=== PATIENT | male | born 1975 | race African-American/Black ===

== ENCOUNTER 2018-10-04 14:37 | Emergency (ER) | payer SELFPAY ==
--- NOTE | 2018-10-04 14:49 | PDOC ---
History of Present Illness - General Chief Complaint: Pain Stated Complaint: ABD PAIN Time Seen by Provider: 10/04/18 14:48 - History of Present Illness Initial Comments: 10/04/18 16:03 Chief complaint: Right flank and lower abdominal pain History of present illness: Patient experienced severe right flank and right lower quadrant pain this afternoon lasting about 2 hours, which subsequently resolved. There was accompanying nausea and retching. No diarrhea. No hematemesis melena or bloody stool Review of systems: Denies dysuria frequency urgency hesitancy or hematuria, though his urine is dark. Denies chest pain, shortness of breath, visual or focal neurologic symptoms, unsteadiness of gait. Past medical history: Healthy male, no significant medical or surgical problems past her present, no medications Social/family history reviewed and noncontributory Physical exam: Patient is now alert oriented all develop well-nourished in no acute distress cheerful and cooperative. There is no pain nausea vomiting or retching at present Afebrile, vital signs normal No pallor or icterus. PERRLA, ENT clear Neck supple without bruit mass or nodes Chest clear, full breath sounds bilaterally, no wheezes rales or rhonchi CV S1 and S2 normal without murmur rub or gallop pulses full and symmetric no JVD or edema no bruits Abdomen nondistended. Bowel sounds normal. Soft without mass tenderness organomegaly. No CVAT Extremities no CCE Skin clear, no rash, adequate turgor and wet mucous membranes Neurological intact Impression: With a history of dark urine and the characteristics of the pain, with subsequent resolution, in the absence of other GI symptoms, most likely diagnosis is renal colic with passing of the stone Plan: Urinalysis, observation, medical treatment as indicated. Past History - Past Medical History Allergies/Adverse Reactions: Allergies Allergy/AdvReac Type Severity Reaction Status Date / Time No Known Allergies Allergy Verified 10/04/18 15:47 Home Medications: Ambulatory Orders NK [No Known Home Medication] 10/04/18 Medical Decision Making - Medical Decision Making 10/04/18 16:33 Urinalysis shows 3+ blood. These results along with the characteristic symptomatology almost certainly represents renal colic with passing of the stone. The patient is asymptomatic at present Performing a CAT scan was discussed, but since the diagnosis seems relatively certain, it was decided to spare the patient radiation exposure unless further signs or symptoms develop. Instructed to hydrate well, strain urines, take Motrin if pain recurs, return to the hospital if the pain is uncontrolled, there is fever or chills, and follow-up with urologist. Fully ambulatory and in no pain or other discomfort upon discharge with father to follow-up as directed *DC/Admit/Observation/Transfer Diagnosis at time of Disposition: Renal colic on right side - Discharge Dispostion Disposition: HOME Condition at time of disposition: Improved Decision to Admit order: No - Referrals - Patient Instructions Printed Discharge Instructions: DI for Kidney Stones Additional Instructions: Keep well-hydrated and active. Take Motrin if there is recurrent pain as directed. Return to Hospital ER immediately if the pain is not controlled, or if there are other symptoms such as severe back pain, fever or chills, lightheadedness, generalized muscle pains or fatigue. Otherwise follow-up with urologist as directed and strain urines, keeping any residual material that may appear for analysis. - Post Discharge Activity
[2018-10-04 15:07] VITALS: BP 142/88; PULSE 62; TEMP 97.2; BMI 24.3
[2018-10-04 16:19] LABS: URINE APPEARANCE Clear; URINE BILIRUBIN Negative (NEGATIVE); URINE COLOR Amber; URINE GLUCOSE (UA) Negative (NEGATIVE); URINE KETONE Negative (NEGATIVE); URINE LEUK ESTERASE Negative (NEGATIVE); URINE NITRITE Negative (NEGATIVE); URINE PROTEIN 1+ (NEGATIVE); URINE UROBILINOGEN 0.2 (0.2-1.0)
[2018-10-04 16:26] LABS: AMORP URATES 2+ /hpf (NONE SEEN); CALCIUM OXALATE CRYSTALS MODERATE /hpf (NONE SEEN); URINE RBC >100 /hpf (0-3)
[2018-10-04 16:27] LABS: URINE BACTERIA FEW /hpf (NEGATIVE); URINE MUCUS 2+
== END 2018-10-04 16:47 | disposition home or self-care (01) ==
LOC: FER 14:37
CPT/HCPCS: 81003; 81015; 99282-25